=== PATIENT | male | born 1945 | race Caucasian/White ===

== ENCOUNTER 2016-05-11 17:32 | Inpatient (IN) | payer OTHER, MEDICARE ==
[~2016-05-11] VITALS: Ht 167.6 cm; Wt 112.7 kg
[~2016-05-11 17:32] MED LIST: SINE25TA2 PO
[2016-05-11 18:08] VITALS: BP 134/60; PULSE 86; RESP 16; TEMP 98; O2SAT 96
[2016-05-11 18:40] LABS: AUTOMATED NEUTROPHIL # 6.7 TH/MM3 (1.8-7.7); BASOPHIL % 0.4 % (0.0-2.0); EOSINOPHIL # 0.3 TH/MM3 (0-0.4); EOSINOPHIL % 3.1 % (0.0-4.0); HEMATOCRIT 29.1 % (39.0-51.0); HEMO FLAGS DIFF FINAL; LYMPH % 11.7 % (9.0-44.0); MEAN CELL VOLUME 89.9 FL (80.0-100.0); MEAN CORPUSCULAR HEMOGLOBIN 29.2 PG (27.0-34.0); MEAN CORPUSCULAR HGB CONC 32.5 % (32.0-36.0); NEUT % 76.8 % (16.0-70.0); PLATELET COUNT 230 TH/MM3 (150-450); RED BLOOD COUNT 3.24 MIL/MM3 (4.50-5.90); RED CELL DISTRIBUTION WIDTH 16.3 % (11.6-17.2); WHITE BLOOD COUNT 8.8 TH/MM3 (4.0-11.0)
[2016-05-11 18:44] LABS: ALT (GPT) 6 U/L (12-78); ANION GAP 8 MEQ/L (5-15); AST (GOT) 18 U/L (15-37); BICARBONATE 25.7 MEQ/L (21.0-32.0); BLOOD UREA NITROGEN 35 MG/DL (7-18); CHLORIDE 105 MEQ/L (98-107); GLOMERULAR FILTRATION RATE 60 ML/MIN (>89); POTASSIUM 4.3 MEQ/L (3.5-5.1); SODIUM (NA) 139 MEQ/L (136-145)
[2016-05-11 18:46] LABS: ALKALINE PHOSPHATASE 106 U/L (45-117); TOTAL BILIRUBIN ADULT 0.7 MG/DL (0.2-1.0)
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
[2016-05-11] MEDS ORDERED: CARBIDOPA/LEVODOPA 25 MG/250 MG TAB PO ONE (19:15)
[2016-05-11] MEDS ORDERED: [UNRECOGNIZED DRUG - CODE] PO (22:28)
[2016-05-11] MEDS ORDERED: MAGN250T3 PO (22:28)
[2016-05-11] MEDS ORDERED: KETOROLAC TROMETHAMINE 30 MG/ML (IVP) VIAL IV PUSH ONE (23:00)
[2016-05-12 00:15] LABS: AMPHETAMINE, URINE NEG (NEG); BARBITURATES, URINE NEG (NEG); COCAINE, URINE NEG (NEG)
[2016-05-12 00:16] LABS: BLOOD, URINE NEG (NEG); COMMENT (UR) CULT NOT INDICATED; CULTURE IF INDICATED CULT NOT INDICATED; GLUCOSE,URINE NEG (NEG); KETONE, URINE NEG (NEG); MUCUS URINE FEW /lpf (OCC); NITRITE,URINE NEG (NEG); URINE COLOR YELLOW (YELLW/STRAW)
[2016-05-12] MEDS ORDERED: ACETAMINOPHEN 325 MG TAB PO ONE (01:45)
[2016-05-12] MEDS ORDERED: QUEtiapine FUMARATE 100 MG TAB PO ONE (02:00)
[2016-05-12 03:00] VITALS: BP 142/72; PULSE 88; RESP 20; O2SAT 95
[2016-05-12 07:00] VITALS: BP 136/68; PULSE 87; RESP 22; TEMP 97.6; O2SAT 98
[2016-05-12] MEDS ORDERED: ACETAMINOPHEN/HYDROcodone 325 MG/7.5 MG TAB PO ONE (11:00)
--- NOTE | 2016-05-12 12:05 | PD ---
History of Present Illness Chief Complaint: Psychiatric Symptoms Time Seen by Provider: 10:35 Travel History International Travel<30 Days: No Contact w/Intl Traveler<30days: No Known affected area: No Legal Status Legal Status: Hernandez Act History of Present Illness: History of Present Illness 70-year-old male with no previous psychiatric history that presents to the ED under a Hernandez act initiated by his PCP Dr. Gee. As per BA " Patient is self mutilating stating that he is infested with worms and proceeded to puncture his nose with a kitchen knife . Patient states he doesn't care if he cuts himself. he only cares about ridding himself of worm infestation ". Patient has been reporting to his PCP that he has worms coming out of his skin. He was treated with Ivermectin and Albendazole despite negative tissue culture and he continued to complain of the worms. As per the PCP note he has been treated for depression and insomnia and failed Ambien as well as Trazodone. Patient is seen in [facility] pod. Obese male with multiple lacerations to his arms and a bandage on his nose. Alert and oriented. He moans as if he is in pain and he reports feeling pain in his legs and back. he has recently fallen and has a fx rib. Patient answers questions but is focused on his pain. He does not appear to be responding to internal stimuli at this time. In terms of his reports of formication he states that the bugs or worms come and go and that he cannot control what he would do when they return. I cannot elicit any other psychiatric symptoms at this time and he denies feeling depressed. He is restless at this time. Telephone call from patient's son, Delfino. Patient gives verbal permission for me to speak with him. He is concerned regarding his father's condition. He reports that there is no previous psychiatric condition. PFSH Past Medical History Atrial Fibrillation: No Diminished Hearing: No Medical other: Yes (RESTLESS LEG SYNDROME PER PT) Immunizations Current: Yes Psychiatric History Psychiatric History Hx Psychiatric Treatment: DENIED HX History of Inpatient Treatment: No Guns or firearms in home: No Social History male. Lives with his . x 25 years. has one son. retired . worked in nutrition services. Hx Alcohol Use: No Hx Tobacco Use: Yes (FOR 50YEARS; NOW ONLY 1/2PPD) Hx Substance Use: Yes Substance Use Type: Alcohol Other Substances Used: SOBER OVER 25 YEARS Hx of Substance Use Treatment: Yes Family Psychiatric History None reported Allergies-Medications (Allergen,Severity, Reaction): Coded Allergies: No Known Allergies (Verified , 05/11/16) Reported Meds & Prescriptions Reported Meds & Active Scripts Active Reported Magnesium 250 Mg Tab 250 Mg PO DAILY Sinemet (Carbidopa/Levodopa) 25-250 Mg Tab 1 Tab PO Q8HR Review of Systems Constitutional: COMPLAINS OF: Fatigue Endocrine: DENIES: Heat/cold intolerance, Polydipsia, Polyuria, Polyphagia Eyes: DENIES: Blurred vision, Diplopia, Eye inflammation, Eye pain, Vision loss , Photosensitivity, Double Vision Ears, nose, mouth, throat: DENIES: Tinnitus, Hearing loss, Vertigo, Nasal discharge, Oral lesions, Throat pain, Hoarseness, Ear Pain, Running Nose, Epistaxis, Sinus Pain, Toothache, Odynophagia Respiratory: DENIES: Apneas, Cough, Snoring, Wheezing, Hemoptysis, Sputum production, Shortness of breath Cardiovascular: COMPLAINS OF: Lower Extremity Edema Gastrointestinal: DENIES: Abdominal pain, Black stools, Bloody stools, Constipation, Diarrhea, Nausea, Vomiting, Difficulty Swallowing, Anorexia Genitourinary: DENIES: Sexual dysfunction, Urinary frequency, Urinary incontinence, Urgency, Hematuria, Dysuria, Nocturia, Penile Discharge, Testicular Pain, Testicular Swelling Musculoskeletal: COMPLAINS OF: Back pain Integumentary: COMPLAINS OF: Abnormal pigmentation Hematologic/lymphatic: DENIES: Bruising, Lymphadenopathy Immunologic/allergic: COMPLAINS OF: Urticaria Neurologic: COMPLAINS OF: Poor Balance Psychiatric: COMPLAINS OF: Anxiety, Hallucinations, Delusions Exam Alert: Yes [place]: Person (ox4) Mood: Anxious Affect: Restricted Speech: Clear Eye Contact: None Memory Intact: Comment (not formally tetsed) Hallucinations: Tactile (worms crawling out of his skinn) Delusions: Yes (worms crawling out of his skin.) Insight/Judgement poor. poor MDM Medical Decision Making Medical Record Reviewed: Yes Assessment/Plan 70 year old male with no psychiatric history and newly onset of delusions that bugs and worms are crawling out of his skin. Patient treated for parasitic infection and continue to report the belief that the worms were coming out of his skin. He has multiple laceration on his arms from scratching and picking at his skin and yesterday he took a kitchen knife to take the worms out resulting in a significant incision on his nose. Patient with multiple other health problems including RLS, hepatitis C multiple fx of pelvis,ribs, pulm hypertension. Due to his recent attempt at removing the worms with a knife and continued delusions re parasites it is felt that he requires inpatient treatment at this time for further evaluation of possible underlying depression and anxiety., initiation of medication and to maintain safety. I discussed plan with the patient and he is not willing to stay in the hospital on a voluntary basis. At this time he will remain on A BA until evaluated by psychiatrist. Will consult [facility] for management of multiple medical conditions. Orders Complete Blood Count With Diff (05/11/16 18:07) Comprehensive Metabolic Panel (05/11/16 18:07) Psych Screen (05/11/16 18:07) Drug Screen, Random Urine (05/11/16 18:07) Alcohol (Ethanol) (05/11/16 18:07) Carbidopa-Levodopa 25-250 Mg (Sinemet 25 (05/11/16 19:15) Wound Care (05/11/16 19:14) Ketorolac Inj (Toradol Inj) (05/11/16 23:00) Urinalysis - C+S If Indicated (05/11/16 23:41) Acetaminophen (Tylenol) (05/12/16 01:45) Quetiapine (Seroquel) (05/12/16 02:00) Diet Regular Basic (05/12/16 Breakfast) Diet Regular Basic (05/12/16 Lunch) Acetamin-Hydrocod 325-7.5 Mg ([place] 7.5 (05/12/16 11:00) Carbidopa-Levodopa 25-250 Mg (Sinemet 25 (05/12/16 14:00) (Nf) Magnesium (05/12/16 11:30) Results Vital Signs Date Time Temp Pulse Resp B/P Pulse Ox O2 Delivery O2 Flow Rate FiO2 05/12/16 07:00 87 22 05/12/16 07:00 97.6 87 22 136/68 98 Room Air 05/12/16 03:00 88 20 142/72 95 Room Air 05/11/16 18:08 98.0 86 16 134/60 96 Room Air Laboratory Tests Test 05/11/16 05/11/16 18:12 23:43 White Blood Count 8.8 Red Blood Count 3.24 Hemoglobin 9.5 Hematocrit 29.1 Mean Corpuscular Volume 89.9 Mean Corpuscular Hemoglobin 29.2 Mean Corpuscular Hemoglobin 32.5 Concent Red Cell Distribution Width 16.3 Platelet Count 230 Mean Platelet Volume 9.0 Neutrophils (%) (Auto) 76.8 Lymphocytes (%) (Auto) 11.7 Monocytes (%) (Auto) 8.0 Eosinophils (%) (Auto) 3.1 Basophils (%) (Auto) 0.4 Neutrophils # (Auto) 6.7 Lymphocytes # (Auto) 1.0 Monocytes # (Auto) 0.7 Eosinophils # (Auto) 0.3 Basophils # (Auto) 0.0 CBC Comment DIFF FINAL Differential Comment Sodium Level 139 Potassium Level 4.3 Chloride Level 105 Carbon Dioxide Level 25.7 Anion Gap 8 Blood Urea Nitrogen 35 Creatinine 1.20 Estimat Glomerular Filtration 60 Rate Random Glucose 98 Calcium Level 8.9 Total Bilirubin 0.7 Aspartate Amino Transf 18 (AST/SGOT) Alanine Aminotransferase 6 (ALT/SGPT) Alkaline Phosphatase 106 Total Protein 7.9 Albumin 3.9 Ethyl Alcohol Level LESS THAN 3 Urine Color YELLOW Urine Turbidity CLEAR Urine pH 5.0 Urine Specific [place] 1.011 Urine Protein NEG Urine Glucose (UA) NEG Urine Ketones NEG Urine Occult Blood NEG Urine Nitrite NEG Urine Bilirubin NEG Urine Urobilinogen LESS THAN 2.0 Urine Leukocyte Esterase NEG Urine RBC LESS THAN 1 Urine WBC 2 Urine Mucus FEW Microscopic Urinalysis Comment CULT NOT INDICATED Urine Opiates Screen NEG Urine Barbiturates Screen NEG Urine Amphetamines Screen NEG Urine Benzodiazepines Screen NEG Urine Cocaine Screen NEG Urine Cannabinoids Screen NEG Diagnosis Primary Impression: Delusional disorder Admitting Information Admitting Physician Requests: Admit (Dr. Mena) Sindhu Duke May 12, 2016 12:05
[2016-05-12] MEDS ORDERED: ACETAMINOPHEN 325 MG TAB PO PRN (12:15)
[2016-05-12] MEDS ORDERED: ALUMINUM/MAGNESIUM/SIMETH 30 ML CUP PO PRN (12:15)
[2016-05-12] MEDS ORDERED: MAGNESIUM HYDROXIDE SUSP 30 ML CUP PO PRN (12:15)
[2016-05-12 13:26] VITALS: BP 199/82; PULSE 67; RESP 24; TEMP 98.3; O2SAT 99
[2016-05-12] MEDS: CARBIDOPA/LEVODOPA 25 MG/250 MG TAB PO SCH ×2 (14:00→21:38)
[2016-05-12 18:47] VITALS: BP 143/64; PULSE 82; TEMP 98.1; O2SAT 97
[2016-05-13] MEDS: CARBIDOPA/LEVODOPA 25 MG/250 MG TAB PO SCH ×3 (05:55→21:41)
[2016-05-13 06:33] VITALS: BP 185/81; PULSE 89; RESP 15; TEMP 97.3; O2SAT 94
[2016-05-13] MEDS: MAGNESIUM OXIDE 400 MG TAB PO SCH (09:00)
[2016-05-13] MEDS: risperiDONE 1 MG TAB PO SCH ×2 (11:00→20:18)
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
[2016-05-13] MEDS: clonazePAM 0.5 MG TAB PO SCH ×2 (12:00→20:18)
[2016-05-13] MEDS: POTASSIUM CHLORIDE 10 MEQ CAP PO SCH (12:00)
[2016-05-13] MEDS ORDERED: QUEtiapine FUMARATE 25 MG TAB PO SCH (12:00)
[2016-05-13] MEDS: FUROSEMIDE 40 MG TAB PO SCH (12:00)
[2016-05-13] MEDS ORDERED: cloNIDine HCL 0.2 MG TAB PO ONE (16:30)
[2016-05-13 19:03] VITALS: BP 184/85; PULSE 90; RESP 17; TEMP 98.2
[2016-05-13] MEDS: CARVEDILOL 3.125 MG TAB PO SCH (20:18)
[2016-05-13] MEDS ORDERED: METOPROLOL TARTRATE 25 MG TAB PO SCH (21:00)
[2016-05-13] MEDS: RESP: ALBUTEROL 2.5 MG/3 ML NEB (PRN) INH ×2 (21:35→22:49)
[2016-05-14] MEDS: CARBIDOPA/LEVODOPA 25 MG/250 MG TAB PO SCH ×3 (05:00→21:29)
[2016-05-14 05:25] VITALS: BP 196/93; PULSE 91; RESP 18; TEMP 98.5; O2SAT 95
[2016-05-14] MEDS: RESP: ALBUTEROL 2.5 MG/3 ML NEB (PRN) INH ×2 (08:20→13:53)
[2016-05-14] MEDS: risperiDONE 1 MG TAB PO SCH ×2 (09:00→11:50)
[2016-05-14] MEDS: FUROSEMIDE 40 MG TAB PO SCH ×3 (09:00→18:36)
[2016-05-14] MEDS: POTASSIUM CHLORIDE 10 MEQ CAP PO SCH (09:00)
[2016-05-14] MEDS ORDERED: NIFEdipine 30 MG SUSTAINED RELEASE TAB PO SCH (09:00)
[2016-05-14] MEDS: CARVEDILOL 3.125 MG TAB PO SCH ×2 (10:06→21:29)
[2016-05-14] MEDS: MAGNESIUM OXIDE 400 MG TAB PO SCH (10:06)
[2016-05-14] MEDS: clonazePAM 0.5 MG TAB PO SCH ×2 (10:12→21:30)
[2016-05-14] MEDS: LISINOPRIL 10 MG TAB PO SCH (11:40)
[2016-05-14 12:00] VITALS: BP 116/54; PULSE 72
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
--- NOTE | 2016-05-14 14:04 | EKG ---
Date Performed: 05/13/2016 Time Performed: 14:35:00 PTAGE: 70 years EKG: Sinus rhythm NORMAL ECG NO PREVIOUS TRACING DOCTOR: Damien Butterfield Interpretating Date/Time 05/14/2016 14:01:38
[2016-05-14] MEDS ORDERED: cloNIDine HCL 0.1 MG TAB PO PRN (16:00)
[2016-05-14 18:00] VITALS: BP 127/60; PULSE 69; RESP 18; TEMP 87.1; O2SAT 100
[2016-05-14 18:26] VITALS: BP 133/70; PULSE 80
[2016-05-15] MEDS: CARBIDOPA/LEVODOPA 25 MG/250 MG TAB PO SCH ×2 (05:50→14:56)
[2016-05-15 06:00] VITALS: BP 154/65; PULSE 81; RESP 18; TEMP 98.3; O2SAT 96
[2016-05-15 08:30] LABS: ANION GAP 8 MEQ/L (5-15); BICARBONATE 27.3 MEQ/L (21.0-32.0); BLOOD UREA NITROGEN 29 MG/DL (7-18); CHLORIDE 106 MEQ/L (98-107); FERRITIN 51 NG/ML (26-388); GLOMERULAR FILTRATION RATE 67 ML/MIN (>89); MAGNESIUM 2.3 MG/DL (1.5-2.5); POTASSIUM 4.1 MEQ/L (3.5-5.1); SODIUM (NA) 141 MEQ/L (136-145); TRANSFERRIN IRON PROFILE 229 MG/DL (200-360)
[2016-05-15] MEDS: risperiDONE 1 MG TAB PO SCH (09:14)
[2016-05-15] MEDS: clonazePAM 0.5 MG TAB PO SCH (09:14)
[2016-05-15] MEDS: LISINOPRIL 10 MG TAB PO SCH (09:15)
[2016-05-15] MEDS: FUROSEMIDE 40 MG TAB PO SCH (09:15)
[2016-05-15] MEDS: CARVEDILOL 3.125 MG TAB PO SCH (09:15)
[2016-05-15] MEDS: MAGNESIUM OXIDE 400 MG TAB PO SCH (09:15)
--- NOTE | 2016-05-15 11:51 | HHI.PYPN ---
Objective Alert: Yes [place]: Person (ox4) Mood: Anxious Affect: Restricted Memory Intact: Comment (not formally tetsed) Hallucinations: Tactile (worms crawling out of his skinn) Delusions: Yes (worms crawling out of his skin.) Labs Test 05/15/16 06:30 Sodium Level 141 MEQ/L Potassium Level 4.1 MEQ/L Chloride Level 106 MEQ/L Carbon Dioxide Level 27.3 MEQ/L Anion Gap 8 MEQ/L Blood Urea Nitrogen 29 MG/DL Creatinine 1.08 MG/DL Estimat Glomerular Filtration 67 ML/MIN Rate Random Glucose 104 MG/DL Calcium Level 8.1 MG/DL Magnesium Level 2.3 MG/DL Iron Level 27 MCG/DL Total Iron Binding Capacity 321 MCG/DL Percent Iron Saturation 8.4 % Ferritin 51 NG/ML Vitals/IOs Vital Signs Date Time Temp Pulse Resp B/P Pulse Ox O2 Delivery O2 Flow Rate FiO2 05/15/16 06:00 98.3 81 18 154/65 96 05/12/16 07:00 Room Air Intake and Output 05/14/16 05/14/16 05/15/16 08:00 16:00 00:00 Intake Total 240 ml 840 ml 840 ml Balance 240 ml 840 ml 840 ml Assessment & Plan Problem List: (1) Delusions of parasitosis ICD Code: F22 Assessment & Plan Estimated LOS: days Request HC Surrog/Guard Advoc?: No Errol Bob MD May 15, 2016 11:51
[2016-05-15] MEDS ORDERED: CLON.5 PO (13:12)
[2016-05-15] MEDS ORDERED: RISP1 PO (13:12)
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
[2016-05-15] MEDS ORDERED: FURO40TA PO (13:49)
[2016-05-15] MEDS ORDERED: CARV3.125 PO (13:49)
[2016-05-15] MEDS ORDERED: LISI10TA3 PO (13:49)
--- NOTE | 2016-05-15 14:28 | HHI.PR ---
Subjective Remarks Follow-up visit hypertension, possible history of CHF, bilateral lower extremity edema, RLS. Patient today. Reports is doing well. Continues to have bilateral extremity edema but not worsening. States he has Lasix at home. Denies pain and discomfort. Denies SOB/ dyspnea. Denies chest pain, palpitations, headaches, dizziness. Denies fevers, chills, n/v/d. Objective Vitals Vital Signs Date Time Temp Pulse Resp B/P Pulse Ox O2 Delivery O2 Flow Rate FiO2 05/15/16 06:00 98.3 81 18 154/65 96 05/14/16 18:26 80 133/70 05/14/16 18:00 87.1 69 18 127/60 100 I/O 05/14/16 05/14/16 05/14/16 05/15/16 05/15/16 05/15/16 07:00 15:00 23:00 07:00 15:00 23:00 Intake Total 600 ml 1080 ml 840 ml Balance 600 ml 1080 ml 840 ml Intake Oral 600 ml 1080 ml 840 ml # Voids 5 2 2 2 Result Diagram: 05/11/16 1812 05/15/16 0630 Objective Remarks GENERAL: This is a well-nourished, well-developed patient, in no apparent distress. HEENT: Normocephalic. Pupils equal round and reactive. Nose without bleeding. Airway patent. NECK: Trachea midline. No JVD. Supple. CARDIOVASCULAR: Regular rate and rhythm without murmurs, gallops, or rubs. RESPIRATORY: Clear to auscultation. Breath sounds equal bilaterally. No wheezes , rales, or rhonchi. GASTROINTESTINAL: Abdomen soft, non-tender, nondistended. Bowel Sounds normoactive x4. MUSCULOSKELETAL: Extremities without clubbing, cyanosis, bilateral lower extremity +1 edema. NEUROLOGICAL: Awake and alert. No focal neuro deficit. DE ANDA. Normal speech. A/P Problem List: (1) Delusions of parasitosis ICD Code: F22 Status: Acute (2) HTN (hypertension) ICD Code: I10 Status: Acute Assessment and Plan This is a 70-year-old male patient with past medical history which includes restless leg syndrome treated with Carbidopa levodopa, COPD not on oxygen, inhalers or nebulizers at home and possible CHF patient reports he takes Lasix at home. Patient is currently in inpatient psychiatric center we have been consulted for assistance with management of medical conditions and pain. Patient denies pain at this time. Patient is asking for his carbidopa levodopa to be restarted as he reports he is having exacerbation of his restless leg syndrome. Patient also reports that his bilateral lower extremities are more edematous than usual. Patient reports at home he has 40 mg Lasix he takes at home. Patient denies shortness of breath, chest pain, nausea, vomiting, diarrhea, constipation, fevers, chills, cough or congestion. Patient does have multiple abrasions right upper extremity forearm and ulcerated abrasions left upper extremity. Patient believes he has or had worms under his skin and was sitting to get them out. Patient is under psychiatric management for this. There is no evidence of worms on skin. Delusional behavior management per psychiatric team Restless leg syndrome continue carbidopa levodopa Hypertension- with possible history of CHF Patient on Lasix 40 daily will also start Coreg 3.125 mg twice a day Continue Lasix use when discharged home. Follow-up with PCP for BMP monitoring. Bilateral lower extremity edema possible CHF chronic does not appear to be in acute exacerbation Continue home Lasix 40 mg daily with potassium 10 meq- as patient current potassium is 4.3 Exquisite ulcerated abrasions bilateral upper extremities- keep clean and dry DVT prophylaxis patient is ambulatory Discussed plan of care with nursing and patient Stable from Hospitalist standpoint. We will sign off. Reconsult as needed. Medically cleared for discharge. Patient is to follow-up with PCP for medical monitoring. Written by Robert Gentile, acting as scribe for Dr. To on 05/15/16 at 14: 27. All or portions of this note were transcribed by scribe [DANIEL Morton] . I, Dr. Kranthi To personally performed the history, physical exam, and medical decision making; and confirmed the accuracy of the information in the transcribed note. Authenticated by Dr. Kranthi To on 05/15/16 at 15:36. Discharge Planning Plan to discharge home by primary team. Patient will need follow-up with PCP and continue with Lasix/ potassium use. Robert Diego May 15, 2016 14:28 Kranthi To MD May 15, 2016 15:36
== END 2016-05-15 16:10 | disposition home or self-care (01) | DRG 918 ==
LOC: NEDAMB 17:32 → NEDA 05-12 12:10 → H250 05-12 13:05
PROVIDERS: ADMIT Psychiatry & Neurology Psychiatry; ATTEND Psychiatry & Neurology Psychiatry
DX: T42.8X1A Poisoning by antiparkinsonism drugs and other central muscle-tone depressants, accidental (unintentional), initial encounter (principal); I27.2 Other secondary pulmonary hypertension; I11.0 Hypertensive heart disease with heart failure; J44.9 Chronic obstructive pulmonary disease, unspecified; Z68.41 Body mass index [BMI] 40.0-44.9, adult; I50.9 Heart failure, unspecified; F24 Shared psychotic disorder; F19.959 Other psychoactive substance use, unspecified with psychoactive substance-induced psychotic disorder, unspecified; F41.9 Anxiety disorder, unspecified; G25.81 Restless legs syndrome; G47.00 Insomnia, unspecified; B19.20 Unspecified viral hepatitis C without hepatic coma; S22.39XD Fracture of one rib, unspecified side, subsequent encounter for fracture with routine healing; F32.9 Major depressive disorder, single episode, unspecified; S40.812A Abrasion of left upper arm, initial encounter; S40.811A Abrasion of right upper arm, initial encounter; E66.9 Obesity, unspecified; F17.210 Nicotine dependence, cigarettes, uncomplicated; X78.9XXA Intentional self-harm by unspecified sharp object, initial encounter; W19.XXXD Unspecified fall, subsequent encounter; Z91.5 Personal history of self-harm
CPT/HCPCS: 80048; 80053; 80307; 81001; 82728; 83540; 83550; 83735; 85025; 93005; 94640; 94664; 96374; J1885; J7613